=== PATIENT | male | born 1990 | race Caucasian/White ===

== ENCOUNTER 2025-05-25 10:29 | Emergency (ER) | payer OTHER, SELFPAY ==
--- OUTSIDE RECORDS SUMMARY | 2025-03-19 10:20 | XMS_ITS ---
Author Organization [facility] Address [address] [place] [address] Phone [phone] Care Team Providers Care Home Restoration Service Supervisor Name Role Phone Mario Malik Primary Care Provider Aretha Saldivar [phone] REASON FOR VISIT 4 week PCP FU Social History Sex Observation Social History Observation Description Sex Observation Male Sexual Orientation Social History Observation Description Sexual Orientation Straight or heterose xual Gender Identity Social History Observation Description Gender Identity Male Encounters Date Time Type Facility Location Provider Diagnosis 03/19/2025 10:20 AM Office Visit [address] [place] [address] Aretha Saldivar Plan Of Treatment No Information Medical (General) History Medical History History ICD Code kidney stones Surgical History Surgery Date(Month/Year) vasectomy 2014 Progress Notes * Cuba COLINDRESDOB:[birth year] (35 yo M)Acc No.[id number]:03/19/2025 UNLOCKED PROGRESS NOTE Progress Notes Patient: Cuba GARCIA Provider: MOUNA Oden :1990 A ge:35 Y S ex:Male Date:03/19/2025 Address:[address] [place], [place] [id number] Pcp:Mario Malik Subjective: * Chief Complaints: * 1 . 4 week PCP FU. * Screening: * * Medical History: Objective: * Vitals: Assessment: Plan: * Treatment: * * Electronic signature of Yuly Saldivar on 05/25/2025 at 11:01 AM KEEL PRESS OPERATOR Sign off status: Pending * Provider: MOUNA Oden Date: 1 Generated for Ena zapata/Maria Gaudalupe/Artis on: 07/26/2024 11:01 AM KEEL PRESS OPERATOR
[2025-05-25 10:40] VITALS: BP 171/94; PULSE 116; RESP 16; TEMP 37; O2SAT 98
--- NOTE | 2025-05-25 10:47 | ED.GENADULT ---
HPI - General Adult General Chief complaint: Skin/Abscess/Foreign Body Stated complaint: Left Foot Skin Sore Time Seen by Provider: 05/25/25 10:47 Source: patient and RN notes reviewed Mode of arrival: ambulatory Limitations: no limitations History of Present Illness HPI narrative: 35-year-old male presents to the [facility] with 4 day history of a sore to the left dorsal foot. States it started as a blister 4 days ago, has gotten bigger. Yesterday noticed some thick drainage from it. Area is 3 x 3, flat, scant amount of purulent drainage is noted. area is warm to touch Related Data Home Medications ?Medication ?Instructions ?Recorded ?Confirmed ?Last Taken ?Type lisinopril 20 mg tablet mg 05/25/25 Unknown History Allergies Allergy/AdvReac Type Severity Reaction Status Date / Time prednisone Allergy Unknown Muscle Verified 05/25/25 10:42 Spasms Review of Systems Review of Systems: All systems reviewed & are unremarkable except as noted in HPI and below Constitutional: Constitutional: Reports no additional constitutional complaints ENT: Reports system reviewed and no additional complaints, except as documented Musculoskeletal: Musculoskeletal: Reports no additional musculoskeletal complaints Integumentary/Breasts: Skin/Breast: Reports as per HPI, Reports erythema and Reports sores PMFSH Comments At the time of my signature, I reviewed and agree with the nursing past medical, surgical, social, and family history. There is no relevant family history pertinent to the patient complaint. Exam Const: General: cooperative, healthy appearing, comfortable, no acute distress, well developed, alert and well nourished Nutritional Appearance: well nourished Orientation/consciousness: patient oriented x3 Limitations: no limitations HENMT: Head: normal to inspection Eyes: General: appearance normal, both eyes and all related structures Alignment and Position: alignment normal Neck: Neck: normal visual inspection, full ROM, no lymphadenopathy and no meningeal signs Chest: Chest palpation & inspection: normal inspection of the chest Resp: Effort & Inspection: normal respiratory effort and able to speak in complete sentences Cardio: Rate: regular rate Skin: Full body images:  1. 3x3 cm red area, scant amount of drainage, warm. no streaking. Neuro: General: patient oriented x3, gait normal, moves all extremities and no meningeal signs Cognition (Neuro): normal cognition Speech: normal speech Gait exam (Neuro): Normal gait present Extrem: General: normal to inspection, full ROM, capillary refill normal and normal gait Psych: Appearance: grossly normal and well kempt Mental Status: mental status grossly normal Speech and movement: Normal speech and movement present and Clear speech present Affect: normal affect Attitude: cooperative Course Course Level of Care: Express Care Visit Vital Signs Vital signs: Vital Signs Temperature 98.6 F 05/25/25 10:40 Pulse Rate 116 H 05/25/25 10:40 Respiratory Rate 16 05/25/25 10:40 Blood Pressure 171/94 H 05/25/25 10:40 Pulse Oximetry 98 05/25/25 10:40 Oxygen Delivery Room Air 05/25/25 10:40 Temperature 98.6 F 05/25/25 10:40 Pulse Rate 116 H 05/25/25 10:40 Respiratory Rate 16 05/25/25 10:40 Blood Pressure 171/94 H 05/25/25 10:40 Pulse Oximetry 98 05/25/25 10:40 Oxygen Delivery Room Air 05/25/25 10:40 reviewed MDM MDM Narrative Medical decision making narrative: Patient sitting in exam room patient is nontoxic, vitals stable. Patient presents with 4 day history of worsening blister, concern for cellulitis. Patient also with high blood pressure, states that he does take his lisinopril. Patient appropriate for outpatient treatment with strict signs and symptoms to proceed to the emergency room. Discharge instructions reviewed with patient, as well as provided in writing per nursing staff. The instructions also include specific and strict return/GO TO THE ER as well as f/u information. All questions have been answered, and the patient deny any further questions with discharge and discharge plan. Some parts of this dictation were generated by voice recognition software and may contain typographical and/or grammatical inaccuracies. Differential Diagnosis Differential Diagnosis: Differential diagnostic considerations for skin/abscess/foreign body issues include abscess of skin or subcutaneous tissue, viral exanthem, dermatophytosis, urticaria, herpes zoster, allergic reaction to drug, cellulitis, eczema, insect bites, impetigo, contact dermatitis, vasculitis. Discharge Plan Discharge Clinical Impression: Cellulitis Patient Disposition: Home Condition: Stable Instructions: Antibiotic Form, Cellulitis (ED) Additional Instructions: today your blood pressure was 171/94. Please follow-up with your doctor within 2 weeks to have this rechecked. Soak twice a day for 15-20 minutes in warm soapy water and Epson salt. Keep area covered when not at home. You can leave it open to air. Apply ice or heat whichever feels better. Take Motrin alternating with Tylenol as needed for pain follow-up with primary care provider for wound check within 2 weeks new or worsening symptoms please go directly to the emergency room Patient Language: Palestinian Prescriptions: New cephalexin 500 mg capsule 500 mg PO QID 7 Days Qty: 28 0RF No Action lisinopril 20 mg tablet Follow-up/Referrals: PHYSICIAN,HVAC SALES REPRESENTATIVE [Primary Care Provider, Internal Medicine] Stand Alone Forms: Work/School Release IP Time of Disposition: 11:03
--- OUTSIDE RECORDS SUMMARY | 2025-05-25 11:02 | XMS_ITS | Clinical Summary ---
Author Organization [facility] Address [address] [place] [address] Phone Care Team Providers Care Security Threat Analyst Name Role Phone Elsa Shaw MD Primary Care Provider Allergies Active Allergy Reactions Criticality Noted Date Comments Prednisone Other (see Comments) 06/11/2015 REALLY REALLY BAD LEG CRAMPS Medications albuterol 108 (90 Base) MCG/ACT Aerosol Solution take 2 Puffs by inhalation every 6 hours as needed for Cough. 1 Inhaler 8 Active azithromycin (ZITHROMAX) 250 MG Tablet 2 tab(s) daily for 1 day, then 1 tab(s) daily for days 2-5. 6 Tab 8 Active Social History Tobacco Use Types Packs/Day Years Used Date Smoking Tobacco: Every Day Cigarettes Smokeless Tobacco: Never Alcohol Use Standard Drinks/Week Comments Yes 0 (1 standard drink = 0.6 oz pur e alcohol) occasionally Sex and Gender Information Value Date Recorded Sex Assigned at Not on file Legal Sex Male 10:15 PM CDT Gender Identity Not on file Sexual Orientation Not on file Last Filed Vital Signs Vital Sign Reading Time Taken Comments Blood Pressure 153/81 01/14/2018 2:15 AM CDT Pulse 72 01/14/2018 2:15 AM CDT Temperature 36.6 C (97.8 F) 01/14/2018 2:15 AM CDT Respiratory Rate 18 01/14/2018 2:15 AM CDT Oxygen Saturation 97% 01/14/2018 2:15 AM CDT Inhaled Oxygen Concentration - - Weight 88.5 kg (195 lb) 01/14/2018 2:15 AM CDT Height 182.9 cm (6') 01/14/2018 2:15 AM CDT Body Mass Index 26.45 01/14/2018 2:15 AM CDT Plan of Treatment Health Maintenance Due Date Last Done Comments Hepatitis C Virus (HCV) Screening 1992 Varicella Immunization (1 of 2 - 13+ 2-dose series) 2005 Hepatitis B Immunization (1 of 3 - 19+ 3-dose series) 2011 Influenza Immunization (#1) 2025 SARS-COV-2 Immunization (1 - 2024- season) 2025 Respiratory Syncytial Virus (RSV) Immunization (Adult) (1 - 1-dose 75+ series) 2067 TdaP Immunization Completed 06/07/2015 DTaP/Tdap/Td Immunization Discontinued 2015, 06/07/2015 Human Papillomavirus (HPV) Immunization (No Doses Required) Completed Meningococcal Immunization (ACWY) Aged Out No longer eligible based on patient's age to complete this topic Pneumococcal Immunization Combined Aged Out No longer eligible based on patient's age to complete this topic Rotavirus Immunization Aged Out No lo nger eligible based on patient's age to complete this topic Insurance [place] Care Teams Security Threat Analyst Relationship Specialty Start Date End Date Elsa Shaw MD [address] [place] [address] [place] [address] [place] [address] PCP - General Family Medicine 10/17/17
--- OUTSIDE RECORDS SUMMARY | 2025-05-25 11:02 | XMS_ITS | Clinical Summary ---
Author Organization [facility] Address [address] [place] [address] Care Team Providers Care Enamel Buffer Name Role Phone Elsa Pastor MD Primary Care Provider [phone] Source Comments [facility],non-owned Affiliates and Associated Physician Practices is amultiple site organization consisting of ambulatory clinics and hospital sitesin [place], [place], [place] and [place]. This disclosure is being madepursuant to the Care Everywhere program and may not contain all information available regarding this patient. Last updated 18.[facility] Allergies Active Allergy Reactions Criticality Noted Date Comments Prednisone 12/28/2015 Leg cramps Medications * Be aware that medications may not be up to date on this document. Alwaysverify current medications with the patient. 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 Gender Identity Not on file Sexual Orientation Not on file Last Filed Vital Signs Vital Sign Reading Time Taken Comments Blood Pressure 143/81 08/27/2017 2:21 PM CDT Pulse 93 08/27/2017 2:21 PM CDT Temperature 36.5 C (97.7 F) 08/27/2017 2:21 PM CDT Respiratory Rate 16 12/28/2015 2:19 PM CDT Oxygen Saturation 100% 08/27/2017 2:21 PM CDT Inhaled Oxygen Concentration - - Weight 90.7 kg (200 lb) 08/27/2017 2:21 PM CDT Height 182.9 cm (6') 08/27/2017 2:21 PM CDT Body Mass Index 27.12 08/27/2017 2:21 PM CDT Plan of Treatment Health Maintenance Due Date Last Done Comments HIV SCREENING 2007 HEPATITIS C SCREENING 03/07/2010 HEPATITIS B VACCINE (1 of 3 - 19+ 3-dose series) 2011 HPV VACCINE (1 - 3-dose SCDM series) 2019 DEPRESSION SCREENING 06/07/2024 COVID-19 VACCINE (1 - 2024-2 6 season) 2025 INFLUENZA VACCINE (#1) 2025 DTAP/TDAP/TD VACCINES (2 - T d or Tdap) 12/27/2025 12/28/2015 ZOSTER VACCINE (1 of 2) 2042 HIB VACCINE Aged Out No longer eligi ble based on patient's age to complete this topic MENINGOCOCCAL (Group B) VACC INE SHARED DECISION-MAKING Aged Out No longer eligibl e based on patient's age to complete this topic MENINGOCOCCAL GROUPS A/C/Y/W VACCINE Aged Out No longer eligible b ased on patient's age to complete this topic PNEUMOCOCCAL VACCINE Aged Out No long er eligible based on patient's age to complete this topic [place] [address] [address] [facility] Care Teams Enamel Buffer Relationship Specialty Start Date End Date Elsa Pastor MD [address] [place] [phone] PCP - General 12/28/17
--- OUTSIDE RECORDS SUMMARY | 2025-05-25 11:02 | XMS_ITS | Patient Health Record ---
Author Organization Counts include 234 beds at the [facility] Address [address] [place] [address] Phone [phone] Care Team Providers Care Barista Name Role Phone Mario Malik Primary Care Provider Aretha Saldivar Unavailable [phone] Allergies Allergen (clinical drug ingredient) Drug/Non Drug Allergy documented on EMR Reaction Allergy Type Onset Date Status codeine Codeine Unknown Drug Allergy Active prednisone predniSONE Unknown Drug Allergy Activ e Results Component Value Reference Range Flag Notes Hemoglobin A1c Order date: 01/22/2025 Reviewed date:01/29/2025 09:33:53 AM Interpretation: Performing Lab: Notes/Report: CMP 14 Comprehensive Metabol ic Panel* Order date: 01/22/2025 Reviewed date:01/25/2025 01:12:36 PM Interpretation: Performing Lab:[facility] [place], [address], [place], Phone - [phone], Director - Lit Notes/Report: Glucose 51 70-99 mg/dL L BUN 13 6-20 mg/dL Creatinine 0.95 0.76-1.27 mg/dL eGFR 109 >59 mL/min/1.73 BUN/Creatinine Ratio 14 9-20 Sodium 138 134-144 mmol/L Potassium 4.1 3.5-5.2 mmol/L Chloride 100 96-106 mmol/L Carbon Dioxide, Total 23 20-29 mmol/L Calcium 9.6 8.7-10.2 mg/dL Protein, Total 7.5 6.0-8.5 g/dL Albumin 5.0 4.1-5.1 g/dL Globulin, Total 2.5 1.5-4.5 g/dL Bilirubin, Total 0.6 0.0-1.2 mg/dL Alkaline Phosphatase 66 44-121 IU/L AST (SGOT) 28 0-40 IU/L ALT (SGPT) 31 0-44 IU/L TSH reflex to T4F Order date: 01/22/2025 Reviewed date:01/25/2025 01:12:02 PM Interpretation: Performing Lab:[facility] [address] [place] [address], Phone - [phone], Director - [facility] Notes/Report: TSH 0.680 0.450-4.500 uIU/mL Lipid Panel* Order date: 01/22/2025 Reviewed date:01/31/2025 04:08:28 PM Interpretation: Performing Lab:[facility] [address] [place], [place] [address]ox [facility] Phone - [phone], Director - [facility] Notes/Report: Cholesterol, Total 172 100-199 mg/dL Triglycerides 188 0-149 mg/dL H HDL Cholesterol 55 >39 mg/dL VLDL Cholesterol Samson 32 5-40 mg/dL LDL Chol Calc (NIH) 85 0-99 mg/dL CBC With Differential/Platel et* Order date: 01/22/2025 Reviewed date:01/25/2025 01:12:25 PM Interpretation: Performing Lab:[facility] [address] [place] [address], Phone - [phone], Director - [facility] Notes/Report: WBC 7.7 3.4-10.8 x10E3/uL RBC 5.25 4.14-5.80 x10E6/uL Hemoglobin 16.3 13.0-17.7 g/dL Hematocrit 48.8 37.5-51.0 % MCV 93 79-97 fL MCH 31.0 26.6-33.0 pg MCHC 33.4 31.5-35.7 g/dL RDW 13.0 11.6-15.4 % Platelets 336 150-450 x10E3/uL Neutrophils 54 Not Estab. % Lymphs 32 Not Estab. % Monocytes 10 Not Estab. % Eos 3 Not Estab. % Basos 1 Not Estab. % Neutrophils (Absolute) 4.2 1.4-7.0 x10E3/uL Lymphs (Absolute) 2.5 0.7-3.1 x10E3/uL Monocytes(Absolute) 0.8 0.1-0.9 x10E3/uL Eos (Absolute) 0.2 0.0-0.4 x10E3/uL Baso (Absolute) 0.1 0.0-0.2 x10E3/uL Immature Granulocytes 0 Not Estab. % Immature Grans (Abs) 0.0 0.0-0.1 x10E3/uL Hemoglobin A1c Order date: 01/22/2025 Reviewed date:01/25/2025 01:12:14 PM Interpretation: Performing Lab:[facility] [place], [address] [place] [address], Phone - [phone], Director - Lit Notes/Report: Hemoglobin A1c 5.1 Reference Range: [place] Diabetes [employer] (ADA) Guidelines: <5.7: Decreased risk for diabetes 5.7 - 6.4: Increased risk for diabetes >6.4: Ongoing Hyperglycemia of any cause <7.0: Glycemic control for adults with diabetes Estimated Average Glucose 100 Reason For Referral No Information Medications Medication SIG (Take, Route, Frequency, Duration) Notes Start Date End Date Diagnosis (ICD Code) Status Lisinopril 20 MG Tablet 1 tablet Orally Once a day; Duration: 30 days HTN (hypertension) (ICD_10 - I10) Active Silvadene 1 % Cream 1 application Externally twice a day; Duration: 14 days 01/22/2025 Skin lesion (ICD_10 - L98.9) Active Nicotine 14 MG/24HR Patch 24 Hour APPLY 1 PATCH TO SKIN DAILY; Duration: 28 Smoking (ICD_10 - F17.200) Active Immunizations Status Vaccine Route Administration Date Visit Date Comments Administered Influenza, virus vaccine, trivalent, preservative free IM Intramuscular 03/26/2025 Social History Tobacco Use: Social History Observation Description Date Details (start date - stop date) Current Smoker 03/07/2016 - NA Sex Observation Social History Observation Description Sex Observation Male Sexual Orientation Social History Observation Description Sexual Orientation Straight or heterose xual Gender Identity Social History Observation Description Gender Identity Male Social History Miscellaneous Social Info Question Answer Notes Method of learning: Preferred method of learning: Demo nstration Primary Social History Social Info Question Answer Notes Living Arrangement Living Arrangement: Dependent Thien montenegro Living with: Grandparent(s) Is this a supportive environment? Yes Single Question Alcohol Screening How many times in the past year have you had (4 for women, or 5 for men) or more drinks in a day? 0 Employment Status Employment Status: Employed [employer] Illicit Substance Usage Illicit Substance Usage: No Alcohol Use Alcohol Use Frequency: Never Tobacco Use: Social Info Question Answer Notes Tobacco Control (Standard) Additional Fi ndings: Tobacco user e-cigarette Additional Findings: Tobacco non-user Ne mirlande chewed tobacco,Never used moist powdered tobacco When did you start smoking? 03/07/2016 Are you interested in quitting? Thinking about quitting Tobacco use: Current smoker How often do you smoke cigarettes? Every day How many cigarettes a day do you smoke? 11-20 How soon after you wake up do you smoke your first cigarette? Within 5 minutes Problems Problem Type SNOMED Code ICD Code Dates Problem Status W/U Status Risk Notes Problem Hypertension (76084664) HTN (hypertension ) (I10) Added On: 025 Active confirmed Problem Elevated blood pressure (18730512) Elevated blood pressure (I10) Added On: 025 Active confirmed Problem Overweight (932747028) Over weight (E66.3) Added On: 025 Active confirmed Problem Smoking (71032350) Smoking (F17.200) Added On: 025 Active confirmed Vital Signs Vital Sign Value Notes Appt Date Heart Rate 79 /min 03/26/2025 Temperature 98 degrees Fahrenheit 2024 Respiratory Rate 16 /min 03/26/2025 Oximetry 98 % 03/26/2025 Blood pressure diastolic 92 mm Hg Height 72 in in 03/26/2025 Blood pressure systolic 146 mm Hg 03/08 Weight 216lb 8oz lbs 03/26/2025 BMI 29.36 kg/m2 03/26/2025 Encounters Date Time Type Facility Location Provider Diagnosis 11:20 AM Office Visit, [place] Pt., Level 4 ([address]259) [address] [place] [id number] Aretha Saldivar Skin lesion L98.9 and Elevated blood pressure I10 5 01:00 PM Office Visit, Est Pt., Level 4 ([address]) [address] [address] Aretha Saldivar Over weight E66.3 ; Elevated blood pressure I10 and Smoking F17.200 5 10:20 AM Office Visit, Est Pt., Level 4 ([address]) [address] [address] Aretha Saldivar Encounter for immunization Z23 ; HTN (hypertension) I10 and Smoking F17.200 Assessments Encounter Date Diagnosis (ICD Code) Assessment Notes Treat ment Notes Section Notes 03/26/2025 Encounter for immunization (ICD-10 - Z23) 03/26/2025 HTN (hypertension) (ICD-10 - I10) Discussed low sodium diet, elevating feet when sitting and wear compression stockings for feet swelling. 01/22/2025 Elevated blood pressure (ICD-10 - I10) Instructed on potential side effects of medication to report. 02/19/2025 Elevated blood pressure (ICD-10 - I10) Instructed on potential side effects of medication to report. 02/19/2025 Over weight (ICD-10 - E66.3) 01/22/2025 Skin lesion (ICD-10 - L98.9) Wash sore 2x/day with soap and water, apply silvadene cream. 02/19/2025 Smoking (ICD-10 - F17.200) 03/26/2025 Smoking (ICD-10 - F17.200) Plan Of Treatment No Information Insurance Providers Payer Name Payer Address Payer Phone Subscriber Number Group Number Insured Name Patient Relationship to Insured Coverage Start Date Coverage End Date [facility] Att Claims Department [address] [place] [address] [id number] Cuba Chow Self - patient is the insured 5 Medical (General) History Medical History History ICD Code kidney stones Surgical History Surgery Date(Month/Year) vasectomy 2014
== END 2025-05-25 11:09 | disposition home or self-care (01) ==
PROVIDERS: Emergency Provider Nurse Practitioner
DX: L03.116 Cellulitis of left lower limb (principal)
CPT/HCPCS: 87070; 87186; 87205; 99213; G0463